=== PATIENT | female | born 1970 | race Hispanic/Latino ===

== ENCOUNTER 2020-11-28 02:42 | Emergency (ER) | payer SELFPAY ==
[~2020-11-28] VITALS: Ht 165.1 cm; Wt 98.0 kg
[~2020-11-28 02:42] MED LIST: NAPROXEN; PREDNISONE
[2020-11-28] MEDS ORDERED: KETOROLAC TROMETHAMINE 30 MG/ML VIAL IV STA (02:59)
[2020-11-28] MEDS ORDERED: KETOROLAC TROMETHAMINE 30 MG/ML VIAL ONE (03:17)
[2020-11-28] MEDS ORDERED: IOPAMIDOL 370 MG/ML 200 ML INFUS..BTL INJ ONE (04:32)
[2020-11-28] MEDS ORDERED: SODIUM CHLORIDE 0.9% 50ML 50 ML ONE (04:32)
[2020-11-28] MEDS ORDERED: ONDANSETRON HCL INJ 2MG/ML 2ML 2 MG/ML VIAL IV STA (04:39)
[2020-11-28] MEDS ORDERED: MORPHINE SULFATE INJ 4 MG/ML INJ 1ML IV ONE (04:45)
[2020-11-28] MEDS ORDERED: ONDANSETRON HCL INJ 2MG/ML 2ML 2 MG/ML VIAL ONE (05:14)
[2020-11-28] MEDS ORDERED: MORPHINE SULFATE INJ 4 MG/ML INJ 1ML ONE (05:15)
[2020-11-28] MEDS ORDERED: CIPRO500 MG PO (05:53)
[2020-11-28 06:04] VITALS: BP 121/57
== END 2020-11-28 06:04 | disposition home or self-care (01) ==
LOC: FSED 03:00
DX: R07.9 Chest pain, unspecified (principal); I10 Essential (primary) hypertension; E78.5 Hyperlipidemia, unspecified; E66.9 Obesity, unspecified; Z68.35 Body mass index [BMI] 35.0-35.9, adult
CPT/HCPCS: 71045; 71260; 80048; 80076; 81003; 83880; 84484; 85025; 85379; 93005; 96374; 96375; 96376; 99284; J1885; J2270; J2405; Q9967

== ENCOUNTER 2020-12-31 15:13 | Inpatient (IN) | payer OTHER ==
[~2020-12-31] VITALS: Ht 165.1 cm; Wt 97.5 kg
[~2020-12-31 15:13] MED LIST changes: +CIPRO500 MG PO
[2020-12-31] MEDS ORDERED: ONDANSETRON HCL INJ 2MG/ML 2ML 2 MG/ML VIAL ONE ×2 (15:56→17:14)
[2020-12-31] MEDS ORDERED: SODIUM CHLORIDE 0.9% 1000ML 1,000 ML ONE (15:57)
[2020-12-31] MEDS ORDERED: IBUPROFEN 600 MG TAB ONE (15:57)
[2020-12-31] MEDS ORDERED: ONDANSETRON HCL INJ 2MG/ML 2ML 2 MG/ML VIAL IV STA ×2 (16:02→16:52)
[2020-12-31] MEDS ORDERED: SODIUM CHLORIDE 0.9% 1000ML 1,000 ML IV STA (16:02)
[2020-12-31] MEDS ORDERED: IBUPROFEN 600 MG TAB PO STA (16:02)
[2020-12-31] MEDS ORDERED: MORPHINE SULFATE INJ 4 MG/ML INJ 1ML IV STA (16:52)
[2020-12-31] MEDS ORDERED: CIPROFLOXACIN 400 MG/D5W 200ML 200 ML IV ONE ×2 (17:00→17:14)
[2020-12-31] MEDS ORDERED: SODIUM CHLORIDE 0.9% 50ML 50 ML ONE (17:06)
[2020-12-31] MEDS ORDERED: IOPAMIDOL 370 MG/ML 200 ML INFUS..BTL INJ ONE (17:07)
[2020-12-31] MEDS ORDERED: MORPHINE SULFATE INJ 4 MG/ML INJ 1ML ONE (17:14)
[2020-12-31] MEDS ORDERED: METRONIDAZOLE 500MG/NS 100ML 100 ML IV ONE (19:24)
[2020-12-31] MEDS ORDERED: KCL 20MEQ/.9 SOD CHL 1,000 ML IV ONE (20:00)
[2020-12-31 22:45] VITALS: BP 141/87
[2020-12-31] MEDS: ONDANSETRON HCL INJ 2MG/ML 2ML 2 MG/ML VIAL IV PRN (23:02)
[2020-12-31] MEDS: METRONIDAZOLE 500MG/NS 100ML IV SCH (23:02)
[2020-12-31] MEDS: MORPHINE SULFATE INJ 4 MG/ML INJ 1ML IV PRN (23:02)
[2020-12-31 23:03] VITALS: BP 141/87
[2021-01-01] VITALS (8 sets, daily range): BP systolic 107–134; BP diastolic 68–86
[2021-01-01] MEDS: METRONIDAZOLE 500MG/NS 100ML IV SCH ×3 (05:07→18:21)
[2021-01-01] MEDS: CIPROFLOXACIN 400 MG/D5W 200ML 200 ML IV SCH ×2 (05:24→16:37)
[2021-01-01] MEDS: MORPHINE SULFATE INJ 4 MG/ML INJ 1ML IV PRN (05:27)
[2021-01-01] MEDS ORDERED: SYNTHROID75 MCG PO (06:02)
[2021-01-01 06:44] LABS: BASOPHILS % 0.3 % (0.0-1.0); EOSINOPHILS # (AUTO) 0.1 (0.0-0.4); EOSINOPHILS % 1.3 % (0.0-6.0); HEMATOCRIT 34.7 % (34.2-44.1); HEMOGLOBIN 11.1 g/dL (12.0-16.0); LYMPHOCYTES # (AUTO) 1.2 (1.0-3.2); MEAN CORPUSCULAR HEMOGLOBIN 26.4 pg (28-32); MEAN CORPUSCULAR VOLUME 82.6 fL (81-99); MONOCYTES # (AUTO) 0.6 (0.2-0.8); MONOCYTES % 6.7 % (4.4-11.3); NEUTROPHILS # (AUTO) 6.7 (2.1-6.9); NEUTROPHILS % 77.2 % (38.7-80.0); PLATELET COUNT 201 x10e3/uL (140-360); RED CELL DISTRIBUTION WIDTH 14.4 % (11.7-14.4)
[2021-01-01 07:16] LABS: ALBUMIN 3.2 g/dL (3.5-5.0); ANION GAP 10.7 mmol/L (8-16); CALCIUM 8.5 mg/dL (8.4-10.2); CREATININE, SERUM 0.73 mg/dL (0.57-1.11); POTASSIUM 3.7 mmol/L (3.5-5.1)
[2021-01-01] MEDS: DEXTROSE 5%/0.45% SOD CHL 1,000 ML IV SCH ×2 (07:34→16:33)
[2021-01-01] MEDS: ONDANSETRON HCL INJ 2MG/ML 2ML 2 MG/ML VIAL IV PRN (08:59)
[2021-01-01] MEDS: PROMETHAZINE HCL (IM) 25 MG/ML VIAL IM PRN ×2 (09:58→16:37)
[2021-01-01] MEDS ORDERED: METRONIDAZOLE 500MG/NS 100ML 100 ML IV SCH (19:25)
[2021-01-02] VITALS (8 sets, daily range): BP systolic 113–149; BP diastolic 67–87
[2021-01-02] MEDS: METRONIDAZOLE 500MG/NS 100ML IV SCH ×4 (00:23→18:53)
[2021-01-02] MEDS: MORPHINE SULFATE INJ 4 MG/ML INJ 1ML IV PRN ×2 (01:16→10:00)
[2021-01-02] MEDS: DEXTROSE 5%/0.45% SOD CHL 1,000 ML IV SCH ×3 (02:39→21:56)
[2021-01-02] MEDS: CIPROFLOXACIN 400 MG/D5W 200ML 200 ML IV SCH ×2 (05:09→17:08)
[2021-01-02 07:12] LABS: HEMATOCRIT 35.2 % (34.2-44.1); HEMOGLOBIN 11.4 g/dL (12.0-16.0); MEAN CORPUSCULAR HEMOGLOBIN 26.7 pg (28-32); MEAN CORPUSCULAR HGB CONC 32.4 g/dL (31-35); MEAN CORPUSCULAR VOLUME 82.4 fL (81-99); PLATELET COUNT 201 x10e3/uL (140-360); RED BLOOD COUNT 4.27 x10e6/uL (3.6-5.1); RED CELL DISTRIBUTION WIDTH 14.2 % (11.7-14.4)
[2021-01-02 07:32] LABS: ANION GAP 12.5 mmol/L (8-16); CREATININE, SERUM 0.72 mg/dL (0.57-1.11); POTASSIUM 3.5 mmol/L (3.5-5.1)
[2021-01-02 09:47] LABS: EOSINOPHILS % (MANUAL) 2 % (0-7); LYMPHOCYTES % (MANUAL) 27 % (19-48); MONOCYTES % (MANUAL) 10 % (3.4-9.0); NEUTROPHILS % (MANUAL) 61 % (40-74)
[2021-01-02 09:48] LABS: PLATELET ESTIMATE ADEQUATE; PLATELET MORPHOLOGY COMMENT NORMAL; RBC MORPHOLOGY COMMENT NORMAL
[2021-01-02] MEDS: ONDANSETRON HCL INJ 2MG/ML 2ML 2 MG/ML VIAL IV PRN (10:00)
[2021-01-03] VITALS (8 sets, daily range): BP systolic 115–144; BP diastolic 64–98
[2021-01-03] MEDS: METRONIDAZOLE 500MG/NS 100ML IV SCH ×5 (00:09→23:57)
[2021-01-03] MEDS: CIPROFLOXACIN 400 MG/D5W 200ML 200 ML IV SCH ×2 (04:39→17:01)
[2021-01-03] MEDS: MORPHINE SULFATE INJ 4 MG/ML INJ 1ML IV PRN ×3 (04:40→12:28)
[2021-01-03] MEDS: ONDANSETRON HCL INJ 2MG/ML 2ML 2 MG/ML VIAL IV PRN ×3 (04:40→19:52)
[2021-01-03 06:58] LABS: % IRON SATURATION 12 % (15-50); IRON 46 ug/dL (50-170); TOTAL IRON BINDING CAPACITY 370 ug/dL (261-478); TRANSFERRIN 264 mg/dL (180-382)
[2021-01-03] MEDS: DEXTROSE 5%/0.45% SOD CHL 1,000 ML IV SCH ×2 (09:31→17:43)
[2021-01-04] VITALS (8 sets, daily range): BP systolic 101–154; BP diastolic 49–80
[2021-01-04] MEDS: DEXTROSE 5%/0.45% SOD CHL 1,000 ML IV SCH ×3 (03:54→23:45)
[2021-01-04] MEDS: METRONIDAZOLE 500MG/NS 100ML IV SCH ×3 (03:54→18:00)
[2021-01-04] MEDS: CIPROFLOXACIN 400 MG/D5W 200ML 200 ML IV SCH ×2 (03:54→16:09)
[2021-01-04] MEDS: MORPHINE SULFATE INJ 4 MG/ML INJ 1ML IV PRN ×2 (03:55→23:57)
[2021-01-04] MEDS: ONDANSETRON HCL INJ 2MG/ML 2ML 2 MG/ML VIAL IV PRN (09:28)
[2021-01-04] MEDS: IRON SUCROSE 100 MG in SODIUM CHLORIDE 0.9% 100 ML 100 ML IV SCH (09:28)
[2021-01-04] MEDS: METRONIDAZOLE 500 MG TAB PO SCH (22:30)
[2021-01-05] VITALS: BP 136/69
[2021-01-05 04:00] VITALS: BP 105/61
[2021-01-05 06:00] LABS: HEMATOCRIT 36.9 % (34.2-44.1); HEMOGLOBIN 11.8 g/dL (12.0-16.0); MEAN CORPUSCULAR HEMOGLOBIN 26.5 pg (28-32); MEAN CORPUSCULAR VOLUME 82.9 fL (81-99); PLATELET COUNT 176 x10e3/uL (140-360); RED BLOOD COUNT 4.45 x10e6/uL (3.6-5.1); RED CELL DISTRIBUTION WIDTH 14.1 % (11.7-14.4)
[2021-01-05] MEDS: METRONIDAZOLE 500 MG TAB PO SCH ×2 (06:07→15:53)
[2021-01-05 06:32] LABS: ANION GAP 14.5 mmol/L (8-16); CALCIUM 9.3 mg/dL (8.4-10.2); CREATININE, SERUM 0.69 mg/dL (0.57-1.11); POTASSIUM 3.5 mmol/L (3.5-5.1)
[2021-01-05 07:52] VITALS: BP 130/62
[2021-01-05 08:00] VITALS: BP 130/62
[2021-01-05 08:41] LABS: EOSINOPHILS % (MANUAL) 2 % (0-7); LYMPHOCYTES % (MANUAL) 24 % (19-48); MONOCYTES % (MANUAL) 5 % (3.4-9.0); NEUTROPHILS % (MANUAL) 69 % (40-74); PLATELET ESTIMATE ADEQUATE; PLATELET MORPHOLOGY COMMENT NORMAL; RBC MORPHOLOGY COMMENT NORMAL
[2021-01-05] MEDS ORDERED: CIPROFLOXACIN 500 MG TAB PO SCH (09:00)
[2021-01-05] MEDS: IRON SUCROSE 100 MG in SODIUM CHLORIDE 0.9% 100 ML 100 ML IV SCH (09:00)
[2021-01-05] MEDS: DEXTROSE 5%/0.45% SOD CHL 1,000 ML IV SCH (10:30)
[2021-01-05 11:59] VITALS: BP 102/71
[2021-01-05 15:58] VITALS: BP 125/70
== END 2021-01-05 18:58 | disposition home or self-care (01) | DRG 392 ==
LOC: FSED 15:36 → ERHOLD 20:05 → MED/SURG3 22:32
PROVIDERS: ADMIT Internal Medicine; ATTEND Internal Medicine
DX: K57.20 Diverticulitis of large intestine with perforation and abscess without bleeding (principal); N39.0 Urinary tract infection, site not specified; E03.9 Hypothyroidism, unspecified; E78.5 Hyperlipidemia, unspecified; I10 Essential (primary) hypertension; E66.9 Obesity, unspecified; Z68.35 Body mass index [BMI] 35.0-35.9, adult; Z20.822 Contact with and (suspected) exposure to COVID-19
CPT/HCPCS: 36415; 74177; 80048; 80053; 80076; 81003; 82607; 82746; 83540; 84466; 85007; 85025; 85027; 85045; 87086; 99284; J1756; J2270; J2405; J2550; J7030; Q9967; U0002

== ENCOUNTER 2021-01-18 11:38 | Emergency (ER) | payer OTHER ==
[~2021-01-18] VITALS: Ht 165.1 cm; Wt 97.5 kg
[~2021-01-18 11:38] MED LIST changes: +SYNTHROID75 MCG PO
== END 2021-01-18 12:53 | disposition left against medical advice (07) ==
LOC: FSED 12:01
DX: R21 Rash and other nonspecific skin eruption (principal)

== ENCOUNTER 2024-06-17 02:59 | Emergency (ER) | payer BC, OTHER ==
[~2024-06-17] VITALS: Ht 167.6 cm; Wt 107.5 kg
[2024-06-17 03:16] VITALS: PULSE 95; RESP 18; TEMP 98.9
[2024-06-17] MEDS: ONDANSETRON HCL INJ 2MG/ML 2ML 2 MG/ML VIAL IV STA (04:08)
[2024-06-17] MEDS: Morphine 4mg INJECTION 4 MG/ML INJ IV ONE (04:09)
[2024-06-17] MEDS ORDERED: IOPAMIDOL 370 MG/ML 100 ML INFUS..BTL INJ ONE (05:52)
[2024-06-17 07:36] VITALS: BP 145/79; PULSE 93; RESP 20; TEMP 98.7; O2SAT 96
== END 2024-06-17 07:35 | disposition home or self-care (01) ==
LOC: FSED 03:32
DX: R10.9 Unspecified abdominal pain (principal); K57.30 Diverticulosis of large intestine without perforation or abscess without bleeding; R11.0 Nausea; K76.0 Fatty (change of) liver, not elsewhere classified; E78.5 Hyperlipidemia, unspecified; E03.9 Hypothyroidism, unspecified
CPT/HCPCS: 74177; 99283; J2270; J2405; Q9967